=== PATIENT | female | born 1955 | race Caucasian/White ===

== ENCOUNTER 2022-08-30 14:15 | Observation (INO) | payer MEDICARE ==
[2022-08-30] MEDS ORDERED: Ondansetron 4 MG/2 ML SDV IVPUSH STA (14:46)
[2022-08-30] MEDS ORDERED: Morphine 2 MG/ML SYRINGE IVPUSH ONE ×2 (14:46→15:48)
[2022-08-30] MEDS ORDERED: Iopamidol 755 Mg/ML 100 ML Bottle IVPUSH ONE (15:28)
[2022-08-30] MEDS ORDERED: Acetaminophen 325 MG Tab PO PRN (17:01)
[2022-08-30] MEDS ORDERED: Sodium Chloride 0.9% 1,000 ML IV SCH (17:01)
[2022-08-30] MEDS ORDERED: Ondansetron 4 MG/2 ML SDV IV PRN (17:01)
[2022-08-30] MEDS ORDERED: Ondansetron 4 MG Tab.DIS PO PRN (17:01)
[2022-08-30] MEDS ORDERED: cefTRIAXone 1 GM Vial IVPUSH SCH (17:01)
[2022-08-30] MEDS ORDERED: Polyethylene Glycol 3350 Powder 17 GM Packet PO PRN (17:01)
[2022-08-30] MEDS: Potassium Chloride 10 MEQ Tab.ER PO SCH (17:23)
[2022-08-30] MEDS ORDERED: Naproxen 500 MG Tab PO PRN (17:39)
[2022-08-30] MEDS ORDERED: Albuterol 90 MCG/6.7 GM Inhaler INH PRN (17:57)
[2022-08-30] MEDS: Morphine 2 MG/ML SYRINGE IVPUSH PRN (18:16)
[2022-08-30] MEDS: busPIRone 5 MG Tab PO SCH (19:56)
[2022-08-30] MEDS: Metoprolol Tartrate 50 MG Tab PO SCH (19:56)
[2022-08-30] MEDS: Formoterol/Mometasone 200-5 MCG 8.8 GM Inhaler IH SCH (19:56)
[2022-08-30] MEDS: FLUoxetine 20 MG Cap PO SCH (19:56)
[2022-08-31] MEDS: Morphine 2 MG/ML SYRINGE IVPUSH PRN ×3 (03:19→12:52)
[2022-08-31] MEDS ORDERED: atorvaSTATin 20 MG Tab PO SCH (08:00)
[2022-08-31] MEDS ORDERED: Losartan 25 MG Tab PO SCH (08:00)
[2022-08-31] MEDS ORDERED: predniSONE 1 MG Tab PO SCH (08:00)
[2022-08-31] MEDS ORDERED: Tiotropium Inhaler 18 MCG Inhalation Powder Cap Kit of 5 INH SCH (08:00)
[2022-08-31] MEDS ORDERED: Hydrochlorothiazide 25 MG Tab PO SCH (08:00)
[2022-08-31] MEDS ORDERED: Montelukast 10 MG Tab PO SCH (08:00)
[2022-08-31] MEDS ORDERED: Loratadine 10 MG Tab PO SCH (08:00)
[2022-08-31] MEDS ORDERED: Famotidine 20 MG Tab PO SCH (08:00)
[2022-08-31] MEDS ORDERED: Calcium Carbonate 500 MG Tab.Chew PO SCH (08:00)
[2022-08-31] MEDS: busPIRone 5 MG Tab PO SCH (09:17)
[2022-08-31] MEDS: Potassium Chloride 10 MEQ Tab.ER PO SCH (09:18)
[2022-08-31] MEDS: FLUoxetine 20 MG Cap PO SCH (09:18)
[2022-08-31] MEDS: Metoprolol Tartrate 50 MG Tab PO SCH (09:19)
[2022-08-31] MEDS: Formoterol/Mometasone 200-5 MCG 8.8 GM Inhaler IH SCH (09:19)
[2022-08-31] MEDS ORDERED: Acetaminophen/HYDROcodone 325-5 MG Tab PO ONE (11:11)
== END 2022-08-31 15:45 ==
LOC: CC.ED 14:15 → SUPCPDRO 14:15 → CC.MS 16:48
PROVIDERS: ADMIT Nurse Practitioner Family; ATTEND Nurse Practitioner Family
DX: R10.11 Right upper quadrant pain (principal); N39.0 Urinary tract infection, site not specified; E87.6 Hypokalemia; E83.42 Hypomagnesemia; Z88.0 Allergy status to penicillin; Z79.899 Other long term (current) drug therapy
CPT/HCPCS: 36415; 74177; 76705; 80048; 80053; 81001; 82150; 83690; 83735; 85025; 87086; 87088; 87186; 96374; 96375; 96376; 99223; 99239; 99285-25; A9270-GY; G0378; J0696; J2270; J2405; J7030; J7512; Q9967